=== PATIENT | male | born 1975 | race Hispanic/Latino ===

== ENCOUNTER 2023-10-21 11:25 | Emergency (ER) | payer OTHER ==
[2023-10-21] MEDS ORDERED: Ketorolac Tromethamine 30 MG/ML VIAL ONE (11:59)
== END 2023-10-21 12:40 | disposition home or self-care (01) ==
LOC: ERS 11:25
DX: M77.8 Other enthesopathies, not elsewhere classified (principal)
CPT/HCPCS: 96372; J1885